=== PATIENT | female | born 1995 | race Caucasian/White ===

== ENCOUNTER 2018-06-04 21:13 | Emergency (ER) | payer OTHER ==
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
[2018-06-04 23:47] VITALS: BP 110/72
== END 2018-06-04 23:51 | disposition home or self-care (01) ==
LOC: ER 21:13
DX: R51 Headache (principal); M25.512 Pain in left shoulder; V89.2XXA Person injured in unspecified motor-vehicle accident, traffic, initial encounter
CPT/HCPCS: 99283

== ENCOUNTER 2018-07-10 21:56 | Emergency (ER) | payer OTHER ==
[2018-07-10 22:15] VITALS: BP 124/76
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
[2018-07-11 00:22] LABS: AMORPHOUS SEDIMENT,URINE TRACE /HPF; APPEARANCE,URINE TURBID; BILIRUBIN,URINE NEGATIVE (NEGATIVE); COLOR,URINE YELLOW; GLUCOSE, URINE NEGATIVE (NEGATIVE); KETONES,URINE NEGATIVE (NEGATIVE); LEUKOCYTE ESTERASE,URINE TRACE (NEGATIVE); NITRITE,URINE NEGATIVE (NEGATIVE); PROTEIN,URINE NEGATIVE (NEGATIVE); URINE SPECIFIC GRAVITY 1.017; UROBILINOGEN,URINE NEGATIVE mg/dL (<2.0)
[2018-07-11 01:47] LABS: CHLAM PCR NOT DETECTED (NOT DETECT); GON PCR NOT DETECTED (NOT DETECT)
== END 2018-07-11 02:11 | disposition home or self-care (01) ==
LOC: ER 21:56
DX: Z20.2 Contact with and (suspected) exposure to infections with a predominantly sexual mode of transmission (principal)
CPT/HCPCS: 81001; 81025; 87491; 87591; 99283